=== PATIENT | female | born 1950 | race Caucasian/White ===

== ENCOUNTER 2021-10-05 11:58 | Inpatient (IN) ==
[2021-10-05] MEDS ORDERED: SODIUM CHLORIDE 0.9% 1,000 ML IV STA (12:43)
[2021-10-05] MEDS ORDERED: DILTIAZEM 50 MG/10 ML VIAL IV STA (12:44)
[2021-10-05] MEDS ORDERED: methylPREDNISolone SOD SUC INJ 500 MG in SODIUM CHLORIDE 0.9% 100 ML IV STA (13:10)
[2021-10-05 13:12] LABS: Basophils # 0.1 10*3/uL (0.0-0.2); Basophils % 0.8 % (0.0-0.8); Eosinophils % 0.3 % (0.00-10.9); Hematocrit 31.8 VOL% (35.7-47.0); Hemoglobin 10.1 GM/DL (12.0-16.0); Immature Granulocytes % 0.5 %; Immature Granulocytes Absolute 0.03 #; Lymphocytes % 15.8 % (21.3-54.2); Mean Corpuscular HGB Conc 31.8 GM/DL (32-36); Mean Corpuscular Volume 93.3 FL (87-102); Mean Platelet Volume 11.5 FL (9.6-12.0); Monocytes % 9.8 % (1.7-12.7); Neutrophils % 72.8 % (38.7-73.9); Platelet Count 149 T/CUMM (130-400); Red Blood Count 3.41 MC/CUMM (3.8-5.5); Red Cell Distribution Width 12.9 % (9.3-17.3); White Blood Count 6.5 T/CUMM (4-12)
[2021-10-05 13:54] LABS: INR 1.1; PT Patient Result 12.6 SECS (10.5-12.0); Partial Thromboplastin Time 27.9 SECS (23.8-32.1)
[2021-10-05 14:26] LABS: Alanine Aminotransferase 249 U/L (13-56); Albumin 2.5 G/DL (3.4-5.0); Alkaline Phosphatase 169 U/L (45-117); Aspartate Amino Transferase 142 U/L (0-37); Blood Urea Nitrogen 19 MG/DL (7-18); Calcium 9.1 MG/DL (8.5-10.1); Carbon Dioxide 21 MMOL/L (21-32); Estimated Glom Filtration Rate 65 ML/MIN; Glucose 137 MG/DL (74-106); Osmolality,Calculated 284.3 MOS/KG (273-304); Potassium 3.5 MMOL/L (3.5-5.1); Sodium 141 MMOL/L (136-145); Thyroid Stimulating Hormone < 0.005 uIU/ml (0.358-3.74); Total Protein 7.8 G/DL (6.4-8.2)
[2021-10-05] MEDS ORDERED: ESMOLOL 100 MG/10 ML VIAL IV ONE (15:00)
[2021-10-05] MEDS: ESMOLOL 2,500 MG/250 ML PREMIX IV SCH (15:42)
[2021-10-05] MEDS ORDERED: ONDANSETRON 4 MG/2 ML VIAL IV PRN (15:48)
[2021-10-05] MEDS ORDERED: GLUCAGON 1 MG VIAL IM PRN (15:48)
[2021-10-05] MEDS ORDERED: DEXTROSE 50% 25 GM/50 ML SYRINGE IV PRN (15:59)
[2021-10-05] MEDS ORDERED: ENOXAPARIN 40 MG/0.4 ML SYRINGE SUBCUT SCH (16:00)
[2021-10-05 18:19] LABS: Hepatitis B Core IgM Quant 0.18 Index; Hepatitis B Surface Ag Quant 0.14 Index; Hepatitis B Surface Ag Result Non-Reactive (NonReactive); Hepatitis C Virus Ab Quant 0.04 Index; Hepatitis C Virus Ab Result Non-Reactive (NonReactive)
[2021-10-05] MEDS ORDERED: methIMAzole 10 MG TABLET PO SCH (21:00)
[2021-10-05] MEDS: DILTIAZEM 30 MG TABLET PO SCH (22:02)
[2021-10-05] MEDS: methIMAzole 5 MG TABLET PO SCH (22:02)
[2021-10-06] MEDS: ESMOLOL 2,500 MG/250 ML PREMIX IV SCH (01:11)
[2021-10-06] MEDS ORDERED: ACETAMINOPHEN 325 MG TABLET PO PRN (01:37)
[2021-10-06] MEDS ORDERED: MELATONIN 3 MG TABLET PO PRN (01:37)
[2021-10-06 05:19] LABS: Albumin 2.5 G/DL (3.4-5.0); Bilirubin,Total 0.5 MG/DL (0.20-1.00); Calcium 9.1 MG/DL (8.5-10.1); Osmolality,Calculated 296.7 MOS/KG (273-304); Potassium 3.3 MMOL/L (3.5-5.1); Total Protein 7.5 G/DL (6.4-8.2)
[2021-10-06] MEDS: DILTIAZEM 30 MG TABLET PO SCH (09:13)
[2021-10-06] MEDS: PANTOPRAZOLE 40 MG TABLET PO SCH (09:14)
[2021-10-06] MEDS: methIMAzole 5 MG TABLET PO SCH ×3 (09:15→20:16)
[2021-10-06] MEDS ORDERED: POTASSIUM CHLORIDE 20 MEQ TABLET PO ONE (09:48)
[2021-10-06] MEDS: PROPRANOLOL 20 MG TABLET PO SCH ×3 (11:08→20:16)
[2021-10-06] MEDS: ENOXAPARIN 100 MG/ML SYRINGE SUBCUT SCH ×2 (11:58→22:11)
[2021-10-06] MEDS: methylPREDNISolone SOD SUC 40 MG/1 ML VIAL IV SCH ×3 (13:15→23:44)
[2021-10-07 04:29] LABS: Basophils % 0.1 % (0.0-0.8); Hematocrit 32.6 VOL% (35.7-47.0); Hemoglobin 10.3 GM/DL (12.0-16.0); Immature Granulocytes % 0.6 %; Immature Granulocytes Absolute 0.08 #; Mean Corpuscular HGB Conc 31.6 GM/DL (32-36); Mean Corpuscular Volume 93.9 FL (87-102); Mean Platelet Volume 12.7 FL (9.6-12.0); Monocytes % 1.8 % (1.7-12.7); Neutrophils % 89.5 % (38.7-73.9); Platelet Count 203 T/CUMM (130-400); Red Blood Count 3.47 MC/CUMM (3.8-5.5); Red Cell Distribution Width 13.2 % (9.3-17.3); White Blood Count 12.8 T/CUMM (4-12)
[2021-10-07 04:53] LABS: Calcium 10.1 MG/DL (8.5-10.1); Osmolality,Calculated 295.8 MOS/KG (273-304); Potassium 3.7 MMOL/L (3.5-5.1)
[2021-10-07] MEDS: methylPREDNISolone SOD SUC 40 MG/1 ML VIAL IV SCH ×3 (05:52→17:36)
[2021-10-07] MEDS: methIMAzole 5 MG TABLET PO SCH ×3 (09:13→20:54)
[2021-10-07] MEDS: PANTOPRAZOLE 40 MG TABLET PO SCH (09:13)
[2021-10-07] MEDS: PROPRANOLOL 20 MG TABLET PO SCH ×3 (09:13→20:54)
[2021-10-07] MEDS ORDERED: FUROSEMIDE 40 MG/4 ML VIAL IV ONE (10:03)
[2021-10-07] MEDS ORDERED: PROPRANOLOL 20 MG TABLET PO ONE (10:03)
[2021-10-07] MEDS: APIXABAN 5 MG TABLET PO SCH ×2 (11:09→20:54)
[2021-10-07] MEDS: ESMOLOL 2,500 MG/250 ML PREMIX IV SCH (15:25)
[2021-10-08] MEDS: methylPREDNISolone SOD SUC 40 MG/1 ML VIAL IV SCH ×3 (00:15→14:19)
[2021-10-08 05:30] LABS: Albumin 2.6 G/DL (3.4-5.0); Bilirubin,Total 0.4 MG/DL (0.20-1.00); Calcium 9.4 MG/DL (8.5-10.1); Osmolality,Calculated 305.4 MOS/KG (273-304); Potassium 4.4 MMOL/L (3.5-5.1); Total Protein 7.3 G/DL (6.4-8.2)
[2021-10-08] MEDS ORDERED: FUROSEMIDE 40 MG/4 ML VIAL IV ONE (08:04)
[2021-10-08] MEDS: methIMAzole 5 MG TABLET PO SCH (09:10)
[2021-10-08] MEDS: PANTOPRAZOLE 40 MG TABLET PO SCH (09:10)
[2021-10-08] MEDS: APIXABAN 5 MG TABLET PO SCH (09:10)
[2021-10-08] MEDS: PROPRANOLOL 20 MG TABLET PO SCH (09:20)
[2021-10-08] MEDS ORDERED: PROPRANOLOL LA 80 MG CAPSULE PO ONE (09:59)
[2021-10-08 12:14] VITALS: BP 150/93
== END 2021-10-08 12:53 | disposition home or self-care (01) | DRG 644 ==
LOC: EDUNIT# → EDBD → N.ED 11:58 → SUATTDRO 15:48 → N.EDINP 15:48 → N.TELEN 10-06 13:56
PROVIDERS: ADMIT Internal Medicine; ATTEND Hospitalist